=== PATIENT | female | born 1995 | race Caucasian/White ===

== ENCOUNTER 2017-05-14 21:55 | Emergency (ER) | payer MEDICAID ==
[~2017-05-14] VITALS: Ht 152.4 cm; Wt 54.0 kg
[2017-05-14 22:46] VITALS: Ht 152.4 cm; Wt 54.0 kg
[2017-05-14 23:47] LABS: CALCIUM 9.3 mg/dL (8.5-10.1); CARBON DIOXIDE 16.3 mmol/L (21-32); CHLORIDE SERUM 107 mmol/L (98-107); CREATININE SERUM 0.9 mg/dL (0.6-1.0); GFR1 > 60 mL/min; GLUCOSE SERUM 95 mg/dL (74-106); SODIUM SERUM 142 mmol/L (136-145)
[2017-05-15] LABS: POTASSIUM SERUM 2.8 mmol/L (3.5-5.1)
[2017-05-15 00:14] LABS: AMPHETAMINE QUAL UR NONE DETECTED (NEG <=1000)
[2017-05-15 03:02] VITALS: BP 117/76
== END 2017-05-15 03:02 | disposition home or self-care (01) ==
LOC: ED 21:55
PROVIDERS: Emergency Medicine
DX: F41.9 Anxiety disorder, unspecified (principal); R20.2 Paresthesia of skin; E87.6 Hypokalemia
CPT/HCPCS: J2060; J3480; J7030